=== PATIENT | female | born 1990 | race Caucasian/White ===

== ENCOUNTER 2021-12-16 05:28 | Emergency (ER) | payer BC, OTHER ==
[2021-12-16] MEDS ORDERED: Sodium Chloride 0.9% 10 ML Syringe FLUSH PRN (05:48)
[2021-12-16] MEDS ORDERED: Ondansetron 4 MG/2 ML SDV IVPUSH ONE (06:03)
[2021-12-16] MEDS ORDERED: HYDROmorphone 0.5 MG/0.5 ML Syringe IVPUSH ONE ×2 (06:03→06:38)
[2021-12-16 06:23] LABS: ANION GAP 14.5 mEq/L (7-13); CHLORIDE,CL 106 mmol/L (98-107); ESTIMATED GFR > 60; SODIUM,NA 141 mmol/L (136-145)
[2021-12-16] MEDS ORDERED: Iopamidol 612 MG/ML 100 ML Bottle IVPUSH ONE (06:34)
[2021-12-16] MEDS ORDERED: Bisacodyl 5 MG Tab PO ONE (07:27)
== END 2021-12-16 07:49 | disposition home or self-care (01) ==
LOC: DL.ED 05:28
DX: K59.09 Other constipation (principal); I88.0 Nonspecific mesenteric lymphadenitis; Z88.0 Allergy status to penicillin
CPT/HCPCS: 36415; 74177; 80053; 81003; 81025; 83605; 83690; 83735; 85025; 86140; 96374; 96375; 96376; 99284; A9270; J1170; J2405; Q9967; 99285